=== PATIENT | male | born 1995 | race Caucasian/White ===

== ENCOUNTER 2019-02-26 02:24 | Emergency (ER) | payer OTHER ==
[2019-02-26 02:31] VITALS: BP 151/75; PULSE 66; RESP 18; TEMP 98.1
[2019-02-26] MEDS ORDERED: ACET/COD 300 MG/30 MG STARTER PACK 6 TAB BTL PO STA (03:13)
[2019-02-26] MEDS ORDERED: PENICILLIN VK 500MG STARTER 4 TAB BTL PO STA (03:13)
[2019-02-26] MEDS ORDERED: KETOROLAC 30 MG/ML 1 ML VIAL IM STA (03:14)
--- NOTE | 2019-02-26 03:19 | ED ---
General Adult HPI - General Chief complaint: Dental/Oral Stated complaint: Mouth pain Time Seen by Provider: 02/26/19 02:51 Source: patient Mode of arrival: ambulatory Limitations: physical limitation - History of Present Illness Initial comments: 23-year-old male patient presents to the emergency department today for evaluation of left upper dental pain. Patient states he has had this intermittently over the last few months but has worsened over the last couple of days. Patient states he has tried Tylenol Motrin without relief. Denies any fever or chills. States he has been nauseous but has had no vomiting. Denies any trismus or difficulty swallowing. Patient states that he does have a wisdom tooth that has broken. Denies recent appointment with dentistry. States he does not have dental insurance. He does have medical insurance. Patient denies any recent rash, shortness breath, chest pain, abdominal pain, diarrhea, constipation, back pain, numbness, tingling, dizziness, weakness, hematuria, dysuria, urinary urgency, urinary frequency, headache, visual changes, or any other complaints. - Related Data Previous Rx's Medication Instructions Recorded Naproxen [EC-Naprosyn] 500 mg PO BID PRN #30 tablet. 02/26/19 Penicillin V Potassium [Pen Vee K] 500 mg PO Q6H #40 tablet 02/26/19 Allergies Allergy/AdvReac Type Severity Reaction Status Date / Time erythromycin base Allergy Rash/Hives Verified 02/26/19 02:31 Review of Systems ROS Statement: Those systems with pertinent positive or pertinent negative responses have been documented in the HPI. ROS Other: All systems not noted in ROS Statement are negative. Past Medical History Past Medical History: No Reported History History of Any Multi-Drug Resistant Organisms: None Reported Past Surgical History: No Surgical Hx Reported Past Psychological History: No Psychological Hx Reported Smoking Status: Current every day smoker Past Alcohol Use History: None Reported Past Drug Use History: None Reported General Exam Limitations: physical limitation General appearance: alert, in no apparent distress, other (This is a well- developed, well-nourished adult male patient in no acute distress. Vital signs upon presentation are temperature 98.1F, pulse 66, respirations 18, blood pressure 151/75, pulse ox 99% on room air.) Eye exam: Present: normal appearance, PERRL, EOMI. Absent: scleral icterus, conjunctival injection, periorbital swelling ENT exam: Present: normal oropharynx, mucous membranes moist, other (There is broken wisdom tooth to the left upper region. There is surrounding gingival erythema and hyperplasia. No evidence of drainable abscess.) Neck exam: Present: normal inspection. Absent: tenderness, meningismus, lymphadenopathy Respiratory exam: Present: normal lung sounds bilaterally. Absent: respiratory distress, wheezes, rales, rhonchi, stridor Cardiovascular Exam: Present: regular rate, normal rhythm, normal heart sounds. Absent: systolic murmur, diastolic murmur, rubs, gallop, clicks GI/Abdominal exam: Present: soft, normal bowel sounds. Absent: distended, tenderness, guarding, rebound, rigid Neurological exam: Present: alert, oriented X3, CN II-XII intact Psychiatric exam: Present: normal affect, normal mood Skin exam: Present: warm, dry, intact, normal color. Absent: rash Course Vital Signs 02/26/19 02:27 Temperature 98.1 F Pulse Rate 66 Respiratory 18 Rate Blood Pressure 151/75 O2 Sat by Pulse 99 Oximetry Medical Decision Making - Medical Decision Making 23-year-old male patient presents to the emergency department today for evaluation of left upper dental pain. Physical examination did reveal a broken wisdom tooth. There is surrounding gingival erythema and hyperplasia. No evidence of drainable abscess. We will start penicillin. He'll be given an injection of Toradol and oral Tylenol with Codeine here in the department. Be discharged pop with dentistry for recheck as soon as possible. Return parameters were discussed in detail. He verbalizes understanding and agrees with this plan. Disposition Clinical Impression: Pain, dental Disposition: HOME SELF-CARE Condition: Good Instructions (If sedation given, give patient instructions): Dental Abscess (ED), Toothache (ED) Additional Instructions: Take medications as directed. Follow up with dentistry as soon as possible. Follow-up with your primary care physician for recheck in 1-2 days. Return to the emergency department for any new, worsening, or concerning symptoms. Please follow up with the [facility]. [facility] [place] [address]. Phone number for new patients or [phone] for existing patients. [facility]. Must pay for x-rays then services are free. Call for an appointment. Your prescription was sent to the [facility] on [address] Prescriptions: Naproxen [EC-Naprosyn] 500 mg PO BID PRN #30 tablet.dr VALENCIA Reason: Pain Penicillin V Potassium [Pen Vee K] 500 mg PO Q6H #40 tablet Is patient prescribed a controlled substance at d/c from ED?: No Referrals: None,Stated [Primary Care Provider] - 1-2 days Time of Disposition: 03:17
== END 2019-02-26 03:31 | disposition home or self-care (01) ==
LOC: EC 02:24
DX: S02.5XXA Fracture of tooth (traumatic), initial encounter for closed fracture (principal); R11.0 Nausea; F17.200 Nicotine dependence, unspecified, uncomplicated; Z88.1 Allergy status to other antibiotic agents
CPT/HCPCS: 99283; 96372; J1885

== ENCOUNTER 2019-05-02 16:41 | Emergency (ER) | payer BC, OTHER ==
[2019-05-02 17:08] VITALS: BP 132/82; PULSE 80; RESP 18; TEMP 98.4
[2019-05-02] MEDS ORDERED: KETOROLAC 30 MG/ML 1 ML VIAL IM STA (17:29)
[2019-05-02] MEDS ORDERED: ACET/COD 300 MG/30 MG STARTER PACK 6 TAB BTL PO STA (17:30)
[2019-05-02] MEDS ORDERED: PENICILLIN VK 500MG STARTER 4 TAB BTL PO STA (17:30)
--- NOTE | 2019-05-02 17:35 | ED ---
General Adult HPI - General Chief complaint: Dental/Oral Stated complaint: Dental pain Time Seen by Provider: 05/02/19 17:12 Source: patient, RN notes reviewed Mode of arrival: ambulatory Limitations: no limitations - History of Present Illness Initial comments: 23-year-old male presents for dental pain. Patient has had dental pain for the past several weeks on and off. States it is worse today. States he tried to make an appointment with the dentist and is currently on a cancellation list. Patient states he has been taking Motrin and Tylenol without success. Denies fevers or chills. Denies sublingual edema. Denies neck stiffness or headache. Patient has no other complaints at this time including shortness of breath, chest pain, abdominal pain, nausea or vomiting, headache, or visual changes. - Related Data Previous Rx's Medication Instructions Recorded Naproxen [EC-Naprosyn] 500 mg PO BID PRN #30 tablet. 02/26/19 Penicillin V Potassium [Pen Vee K] 500 mg PO Q6H #40 tablet 02/26/19 Penicillin V Potassium [Pen Vee K] 500 mg PO Q6H 10 Days #40 tablet 05/02/19 Allergies Allergy/AdvReac Type Severity Reaction Status Date / Time erythromycin base Allergy Rash/Hives Verified 02/26/19 02:31 Review of Systems ROS Statement: Those systems with pertinent positive or pertinent negative responses have been documented in the HPI. ROS Other: All systems not noted in ROS Statement are negative. Past Medical History Past Medical History: No Reported History History of Any Multi-Drug Resistant Organisms: None Reported Past Surgical History: No Surgical Hx Reported Past Psychological History: No Psychological Hx Reported Smoking Status: Current every day smoker Past Alcohol Use History: None Reported Past Drug Use History: None Reported General Exam Limitations: no limitations General appearance: alert, in no apparent distress Head exam: Present: atraumatic, normocephalic, normal inspection Eye exam: Present: normal appearance, PERRL, EOMI. Absent: scleral icterus, conjunctival injection, periorbital swelling ENT exam: Present: normal exam, mucous membranes moist, TM's normal bilaterally, normal external ear exam, other (No significant facial or jaw edema.). Absent: normal oropharynx (Patient has poor dentition noted. Patient is tenderness to the left upper molar. There is no palpable or visible abscess along the gumline.) Neck exam: Present: normal inspection, full ROM. Absent: tenderness, meningismus, lymphadenopathy Respiratory exam: Present: normal lung sounds bilaterally. Absent: respiratory distress, wheezes, rales, rhonchi, stridor Cardiovascular Exam: Present: regular rate, normal rhythm, normal heart sounds. Absent: systolic murmur, diastolic murmur, rubs, gallop, clicks Neurological exam: Present: alert Course Vital Signs 05/02/19 17:06 Temperature 98.4 F Pulse Rate 80 Respiratory 18 Rate Blood Pressure 132/82 O2 Sat by Pulse 96 Oximetry Medical Decision Making - Medical Decision Making Patient presents for left upper molar pain. This is been ongoing for several weeks. Patient is already trying to follow-up with the dentist. No fevers or chills. No sublingual tenderness or edema. No significant facial edema. Patient will be started on penicillin. He will be given starter pack of Tylenol 3. He will follow up with primary care in 1-2 days and return to the emergency department if you have any worsening symptoms. Disposition Clinical Impression: Pain, dental Disposition: HOME SELF-CARE Condition: Good Instructions (If sedation given, give patient instructions): Toothache (ED) Additional Instructions: Please take penicillin as directed. Take Motrin and Tylenol for pain. If pain is severe take Tylenol 3. Do not take more than 4000 mg of Tylenol per day. Follow-up with primary care as well as your dentist as soon as possible. Return to the emergency department for having worsening symptoms. Prescriptions: Penicillin V Potassium [Pen Vee K] 500 mg PO Q6H 10 Days #40 tablet Is patient prescribed a controlled substance at d/c from ED?: No Referrals: Malena Noel MD [REFERRING] - 1-2 days Time of Disposition: 17:34
== END 2019-05-02 17:47 | disposition home or self-care (01) ==
LOC: EC 16:41
DX: K08.89 Other specified disorders of teeth and supporting structures (principal); F17.200 Nicotine dependence, unspecified, uncomplicated; Z88.1 Allergy status to other antibiotic agents
CPT/HCPCS: 99282; 96372; J1885

== ENCOUNTER 2019-05-04 00:17 | Emergency (ER) | payer BC, OTHER ==
[2019-05-04 00:30] VITALS: BP 147/88; PULSE 77; RESP 18; TEMP 97.7
[2019-05-04] MEDS ORDERED: BUPIVACAINE (PF) 0.5% 30 ML VIAL SQ STA (00:37)
[2019-05-04] MEDS ORDERED: ACET/COD 300 MG/30 MG STARTER PACK 6 TAB BTL PO STA (01:02)
--- NOTE | 2019-05-04 01:03 | ED ---
General Adult HPI - General Chief complaint: Dental/Oral Stated complaint: Recheck, Dental Pain Time Seen by Provider: 05/04/19 00:33 Source: patient, family Mode of arrival: ambulatory Limitations: no limitations - History of Present Illness Initial comments: 23-year-old male patient presents to the emergency department today for evaluation of left upper dental pain. Patient states his been going on for the last several weeks intermittent October but over the last 4-5 days has been constant. Patient states he was seen and evaluated here on 05/02 and given a prescription for antibiotics and some Tylenol with Codeine. States that he has been taking medications without relief of symptoms. Patient states he is unable to eat, drink, or sleep. States he has been taking ibuprofen as well. Denies any trismus or difficulty swallowing. Denies any nausea or vomiting. Patient does have a dentist appointment on Saturday. Patient denies any recent rash, fever, chills, shortness breath, chest pain, abdominal pain, diarrhea, constipation, back pain, numbness, tingling, dizziness, weakness, hematuria, dysuria, urinary urgency, urinary frequency, headache, visual changes, or any other complaints. - Related Data Previous Rx's Medication Instructions Recorded Naproxen [EC-Naprosyn] 500 mg PO BID PRN #30 tablet. 02/26/19 Penicillin V Potassium [Pen Vee K] 500 mg PO Q6H #40 tablet 02/26/19 Penicillin V Potassium [Pen Vee K] 500 mg PO Q6H 10 Days #40 tablet 05/02/19 Allergies Allergy/AdvReac Type Severity Reaction Status Date / Time azithromycin Allergy Rash/Hives Verified 05/04/19 00:30 Review of Systems ROS Statement: Those systems with pertinent positive or pertinent negative responses have been documented in the HPI. ROS Other: All systems not noted in ROS Statement are negative. Past Medical History Past Medical History: No Reported History History of Any Multi-Drug Resistant Organisms: None Reported Past Surgical History: No Surgical Hx Reported Past Psychological History: No Psychological Hx Reported Smoking Status: Current every day smoker Past Alcohol Use History: None Reported Past Drug Use History: None Reported General Exam Limitations: no limitations General appearance: alert, in no apparent distress, other (This is a well- developed, well-nourished adult male patient in no acute distress. Vital signs upon presentation are temperature 97.7F, pulse 77, respirations 18, blood pressure 147/88, pulse ox 97% on room air) Eye exam: Present: normal appearance, PERRL, EOMI. Absent: scleral icterus, conjunctival injection, periorbital swelling ENT exam: Present: normal oropharynx, mucous membranes moist, other (Patient has very poor dentition with multiple dental caries and decay to the left upper dentition. There is no surrounding erythema or swelling. Patient has no sublingual edema or tenderness.) Respiratory exam: Present: normal lung sounds bilaterally. Absent: respiratory distress, wheezes, rales, rhonchi, stridor Cardiovascular Exam: Present: regular rate, normal rhythm, normal heart sounds. Absent: systolic murmur, diastolic murmur, rubs, gallop, clicks Neurological exam: Present: alert, oriented X3, CN II-XII intact Psychiatric exam: Present: normal affect, normal mood Skin exam: Present: warm, dry, intact, normal color. Absent: rash Course Vital Signs 05/04/19 00:27 Temperature 97.7 F Pulse Rate 77 Respiratory 18 Rate Blood Pressure 147/88 O2 Sat by Pulse 97 Oximetry Procedures - Nerve Block Consent Obtained: verbal consent Local Anesthetic Used: Marcaine 0.5% Amount of anesthesia used: 3 Side: left Intraoral Nerve Block: superior alveolar Procedure Successful: Yes Complications: none Patient Tolerated Procedure: well Medical Decision Making - Medical Decision Making 23-year-old male patient presents to the emergency department today for evaluation of left upper dental pain. Physical examination did reveal dental decay and caries. No evidence of drainable abscess. Patient is been taking Tylenol with codeine and ibuprofen without relief. Did perform a posterior superior alveolar nerve block. Patient did have relief of pain with this. He'll be given additional starter pack for Tylenol codeine. He is instructed to continue ibuprofen and antibiotics. He is instructed to follow up with dentistry on Saturday as he has planned. Return parameters were discussed in detail. He verbalizes understanding and agrees with this plan. Disposition Clinical Impression: Pain, dental Disposition: HOME SELF-CARE Condition: Good Instructions (If sedation given, give patient instructions): Toothache (ED) Additional Instructions: Continue antibiotics. Take medications as directed for pain relief. Follow up with dentistry on Saturday as you have planned. Return to the emergency department immediately for any new, worsening, or concerning symptoms. Is patient prescribed a controlled substance at d/c from ED?: No Referrals: None,Stated [Primary Care Provider] - 1-2 days Time of Disposition: 01:03
== END 2019-05-04 01:11 | disposition home or self-care (01) ==
LOC: EC 00:17
DX: K02.9 Dental caries, unspecified (principal); F17.200 Nicotine dependence, unspecified, uncomplicated; Z88.1 Allergy status to other antibiotic agents
CPT/HCPCS: 64400; 99282

== ENCOUNTER 2023-11-30 12:29 | Emergency (ER) | payer OTHER ==
[2023-11-30 12:49] VITALS: BP 147/89; PULSE 52; RESP 18; TEMP 97.9
--- NOTE | 2023-11-30 12:58 | ED ---
ENT HPI - General Chief complaint: Dental/Oral Stated complaint: Dental Issue Time Seen by Provider: 11/30/23 12:50 Source: patient Mode of arrival: ambulatory Limitations: no limitations - History of Present Illness Initial comments: This is a 28-year-old male who presents to the emergency department chief complaint of dental pain. Patient states that he has an appoint with his dentist on Saturday, 12/01 further evaluation. Patient states that he has taken Tylenol and Motrin at home over the last week which is not alleviating his symptoms. He denies fevers, nausea, vomiting, fatigue. Denies chest pain, chest pressure, palpitations, dizziness, dyspnea. Denies recent antibiotic use. No other acute complaints at this time. - Related Data Previous Rx's Medication Instructions Recorded Naproxen [EC-Naprosyn] 500 mg PO BID PRN #30 tablet. 02/26/19 Penicillin V Potassium [Pen Vee K] 500 mg PO Q6H #40 tablet 02/26/19 Penicillin V Potassium [Pen Vee K] 500 mg PO Q6H 10 Days #40 tablet 05/02/19 Amoxicillin 875 mg PO Q12HR #20 tablet 11/30/23 Ketorolac [Toradol] 10 mg PO Q8HR #15 tab 11/30/23 Allergies Allergy/AdvReac Type Severity Reaction Status Date / Time azithromycin Allergy Rash/Hives Verified 05/04/19 00:30 Review of Systems ROS Statement: Those systems with pertinent positive or pertinent negative responses have been documented in the HPI. ROS Other: All systems not noted in ROS Statement are negative. Past Medical History Past Medical History: No Reported History History of Any Multi-Drug Resistant Organisms: None Reported Past Surgical History: No Surgical Hx Reported Past Psychological History: No Psychological Hx Reported Smoking Status: Current every day smoker Past Alcohol Use History: Rare Past Drug Use History: None Reported General Exam Limitations: no limitations General appearance: alert, in no apparent distress Head exam: Present: atraumatic, normocephalic, normal inspection Eye exam: Present: normal appearance, PERRL, EOMI. Absent: scleral icterus, conjunctival injection, periorbital swelling ENT exam: Present: normal exam, mucous membranes moist Expanded Mouth exam: Present: normal external inspection Teeth exam: Present: dental caries, dental tenderness # Throat exam: normal inspection. negative: tonsillar erythema, tonsillomegaly Neck exam: Present: normal inspection. Absent: tenderness, meningismus, lymphadenopathy Respiratory exam: Present: normal lung sounds bilaterally. Absent: respiratory distress, wheezes, rales, rhonchi, stridor Cardiovascular Exam: Present: regular rate, normal rhythm, normal heart sounds. Absent: systolic murmur, diastolic murmur, rubs, gallop, clicks Back exam: Present: normal inspection Neurological exam: Present: alert, oriented X3, CN II-XII intact Course Vital Signs 11/30/23 12:47 Temperature 97.9 F Pulse Rate 52 L Respiratory 18 Rate Blood Pressure 147/89 O2 Sat by Pulse 98 Oximetry Medical Decision Making - Medical Decision Making Was pt. sent in by a medical professional or institution (, [facility], [facility], urgent care, hospital, or fci...) When possible be specific @ -No Did you speak to anyone other than the patient for history (EMS, parent, family, police, friend...)? What history was obtained from this source @ -No Did you review nursing and triage notes (agree or disagree)? Why? @ -I reviewed and agree with nursing and triage notes Were old charts reviewed (outside hosp., previous admission, EMS record, old EKG, old radiological studies, urgent care reports/EKG's, fci records)? Report findings @ -No old charts were reviewed Differential Diagnosis (chest pain, altered mental status, abdominal pain women, abdominal pain men, vaginal bleeding, weakness, fever, dyspnea, syncope, headache, dizziness, GI bleed, back pain, seizure, CVA, palpatations, mental health, musculoskeletal)? @ -dental pain, dental abscess, pulpitis, gingivitis, dental caries, this list is not all inclusive. EKG interpreted by me (3pts min.). @ -none X-rays interpreted by me (1pt min.). @ -None done CT interpreted by me (1pt min.). @ -None done U/S interpreted by me (1pt. min.). @ -None done What testing was considered but not performed or refused? (CT, X-rays, U/S, labs)? Why? @ -None What meds were considered but not given or refused? Why? @ -None Did you discuss the management of the patient with other professionals (professionals i.e. , PA, [facility], lab, RT, psych nurse, social human services assistants, writer producer, teacher, contact officer, pillowcase maker)? Give summary @ -No Was smoking cessation discussed for >3mins.? @ -No Was critical care preformed (if so, how long)? @ -No Were there social determinants of health that impacted care today? How? (Homelessness, low income, unemployed, alcoholism, drug addiction, transportation, low edu. Level, literacy, decrease access to med. care, snf, rehab)? @ -No Was there de-escalation of care discussed even if they declined (Discuss DNR or withdrawal of care, Hospice)? DNR status @ -No What co-morbidities impacted this encounter? (DM, HTN, Smoking, COPD, CAD, Cancer, CVA, ARF, Chemo, Hep., AIDS, mental health diagnosis, sleep apnea, morbid obesity)? @ -None Was patient admitted / discharged? Hospital course, mention meds given and route, prescriptions, significant lab abnormalities, going to OR and other pertinent info. @ -Discharged. 28-year-old male with left-sided dental pain. On examination patient has noted to have poor overall dentition. There is no signs of dental abscess noted. Patient has point dental tenderness to the maxillary left and mandibular line. Patient's vital stable. At this time he will be discharged home with oral antibiotics and Toradol to take as needed for pain relief. Patient does have an appointment scheduled with his dentist on Saturday. Patient's evidence and at bedside and strict return parameters counseled the patient rates verbalized understanding. Case discussed with my attending Dr. Crook Undiagnosed new problem with uncertain prognosis? @ -No Drug Therapy requiring intensive monitoring for toxicity (Heparin, Nitro, Insulin, Cardizem)? @ -No Were any procedures done? @ -No Diagnosis/symptom? @ -dental pain, dental caries Acute, or Chronic, or Acute on Chronic? @ -acute Uncomplicated (without systemic symptoms) or Complicated (systemic symptoms)? @ -Uncomplicated Side effects of treatment? @ -No Exacerbation, Progression, or Severe Exacerbation? @ -No Poses a threat to life or bodily function? How? (Chest pain, [place], [place], pneumonia, PE, COPD, DKA, ARF, appy, cholecystitis, CVA, Diverticulitis, Homicidal, Suicidal, threat to staff... and all critical care pts) @ -unlikely Disposition Clinical Impression: Pain due to dental caries, Pain, dental Disposition: HOME SELF-CARE Condition: Good Instructions (If sedation given, give patient instructions): Toothache (ED) Additional Instructions: Return to the emergency department if your symptoms worsen or not improved. Complete full course of antibiotics as prescribed. Follow-up as scheduled with dentist on Saturday. Prescriptions: Amoxicillin 875 mg PO Q12HR #20 tablet Ketorolac [Toradol] 10 mg PO Q8HR #15 tab Is patient prescribed a controlled substance at d/c from ED?: No Referrals: None,Stated [Primary Care Provider] - 1-2 days Time of Disposition: 12:57
[2023-11-30] MEDS: traMADol 50 MG STARTER PACK 3 TAB BTL PO STA (13:35)
== END 2023-11-30 13:35 | disposition home or self-care (01) ==
LOC: EC 12:29
DX: K02.9 Dental caries, unspecified (principal); F17.200 Nicotine dependence, unspecified, uncomplicated; Z88.1 Allergy status to other antibiotic agents
CPT/HCPCS: 99282

== ENCOUNTER 2024-09-11 23:43 | Emergency (ER) | payer OTHER ==
[2024-09-12] MEDS: DEXAMETHASONE SOD PHOSPHATE 10 MG/ML 1 ML VIAL IM STA (00:55)
[2024-09-12] MEDS: KETOROLAC 15 MG/ML 1 ML VIAL IM STA (00:56)
[2024-09-12] MEDS: ORPHENADRINE 30 MG/ML 2 ML VIAL IM STA (00:56)
--- NOTE | 2024-09-12 01:47 | XR ---
EXAM: XR Left Hip With Pelvis When Performed, 2 or 3 Views CLINICAL HISTORY: ITS.REASON XR Reason: pain TECHNIQUE: Two or three views of the left hip with pelvis when performed. COMPARISON: No relevant prior studies available. FINDINGS: Bones/joints: No acute fracture. No dislocation. Soft tissues: Unremarkable. IMPRESSION: No acute osseous findings.
--- NOTE | 2024-09-12 02:04 | ED ---
Lower Extremity Injury HPI - General Chief Complaint: Extremity Injury, Lower Stated Complaint: Hip Pain Time Seen by Provider: 09/12/24 00:29 Source: patient Mode of arrival: ambulatory Limitations: no limitations - History of Present Illness Initial Comments: 28-year-old male presenting with chief complaint of left hip pain. States that this has been an ongoing issue for the past 2 months. He denies any injury or trauma. About a week ago he started having an increase in the intensity and frequency of the pain. Tonight the pain was too much and he could not handle it at home with Motrin and Tylenol. He does have some radiation from his lower back as well. No loss of bowel or bladder control or saddle paresthesia. At times he does get some numbness and tingling. No fever vomiting or abdominal pain. - Related Data Previous Rx's Medication Instructions Recorded Naproxen [EC-Naprosyn] 500 mg PO BID PRN #30 tablet. 02/26/19 Penicillin V Potassium [Pen Vee K] 500 mg PO Q6H #40 tablet 02/26/19 Penicillin V Potassium [Pen Vee K] 500 mg PO Q6H 10 Days #40 tablet 05/02/19 Amoxicillin 875 mg PO Q12HR #20 tablet 11/30/23 Ketorolac [Toradol] 10 mg PO Q8HR #15 tab 11/30/23 Amoxic-Pot Clav 875-125Mg 1 tab PO BID 10 Days #20 tab 07/18/24 [Augmentin 875-125] Cyclobenzaprine [Flexeril] 10 mg PO TID PRN #15 tab 09/12/24 Allergies Allergy/AdvReac Type Severity Reaction Status Date / Time azithromycin Allergy Rash/Hives Verified 09/11/24 23:59 Review of Systems ROS Statement: Those systems with pertinent positive or pertinent negative responses have been documented in the HPI. ROS Other: All systems not noted in ROS Statement are negative. Past Medical History Past Medical History: No Reported History History of Any Multi-Drug Resistant Organisms: None Reported Past Surgical History: No Surgical Hx Reported Past Psychological History: No Psychological Hx Reported Smoking Status: Current every day smoker Past Alcohol Use History: Rare Past Drug Use History: Marijuana General Exam Limitations: no limitations General appearance: alert, in no apparent distress Head exam: Present: atraumatic, normocephalic, normal inspection Eye exam: Present: normal appearance, EOMI Neck exam: Present: normal inspection. Absent: meningismus Respiratory exam: Absent: respiratory distress Cardiovascular Exam: Present: regular rate Extremities exam: Present: normal inspection, full ROM. Absent: tenderness Back exam: Present: normal inspection. Absent: tenderness Neurological exam: Present: alert, oriented X3 Psychiatric exam: Present: normal affect, normal mood Skin exam: Present: warm, dry, normal color Course Vital Signs 09/11/24 23:56 Temperature 98 F Pulse Rate 106 H Respiratory 18 Rate Blood Pressure 124/87 O2 Sat by Pulse 100 Oximetry Medical Decision Making - Medical Decision Making Was pt. sent in by a medical professional or institution (, PA, SCHOOL OFFICE ASSISTANT, urgent care, hospital, or retirement...) When possible be specific @ -No Did you speak to anyone other than the patient for history (EMS, parent, family, police, friend...)? What history was obtained from this source @ -No Did you review nursing and triage notes (agree or disagree)? Why? @ -I reviewed and agree with nursing and triage notes Were old charts reviewed (outside hosp., previous admission, EMS record, old EKG, old radiological studies, urgent care reports/EKG's, retirement records)? Report findings @ -No old charts were reviewed Differential Diagnosis (chest pain, altered mental status, abdominal pain women, abdominal pain men, vaginal bleeding, weakness, fever, dyspnea, syncope, headache, dizziness, GI bleed, back pain, seizure, CVA, palpatations, mental health, musculoskeletal)? @ -Differential Musculoskeletal Muscular strain, contusion, ligament sprain, fracture, arthritis, septic arthritis, bursitis, cellulitis, muscle spasm, nerve compression, DVT, arterial occlusion, herpes zoster, electrolyte abnormality, tumor.... This is not meant to be in all inclusive list EKG interpreted by me (3pts min.). @ -As above X-rays interpreted by me (1pt min.). @ -X-ray shows no acute osseous abnormality CT interpreted by me (1pt min.). @ -None done U/S interpreted by me (1pt. min.). @ -None done What testing was considered but not performed or refused? (CT, X-rays, U/S, labs)? Why? @ -None What meds were considered but not given or refused? Why? @ -None Did you discuss the management of the patient with other professionals (professionals i.e. DrMyriam, PA, SCHOOL OFFICE ASSISTANT, lab, RT, psych nurse, transition social worker, software designer, teacher, bank operations officer, medical case manager)? Give summary @ -No Was smoking cessation discussed for >3mins.? @ -No Was critical care preformed (if so, how long)? @ -No Were there social determinants of health that impacted care today? How? (Homelessness, low income, unemployed, alcoholism, drug addiction, transportation, low edu. Level, literacy, decrease access to med. care, half-way, rehab)? @ -No Was there de-escalation of care discussed even if they declined (Discuss DNR or withdrawal of care, Hospice)? DNR status @ -No What co-morbidities impacted this encounter? (DM, HTN, Smoking, COPD, CAD, Cancer, CVA, ARF, Chemo, Hep., AIDS, mental health diagnosis, sleep apnea, morbid obesity)? @ -None Was patient admitted / discharged? Hospital course, mention meds given and route, prescriptions, significant lab abnormalities, going to OR and other pertinent info. @ -28-year-old male presenting with chief complaint of left hip pain ongoing for 2 months worse the past week. No injury or trauma. No red flag symptoms. Patient treated with pain medication here in the ER. X-rays negative for acute process. On reassessment patient reports improvement in his symptoms. He is educated on today's findings and supportive management at home. Instructed to follow-up with orthopedics. Follow-up with PCP. Report back to ER with any new or worsening symptoms. Discussed return parameters and answered all questions. Patient conveyed verbal understanding and agreed to the plan. I discussed this case in detail with my attending Dr. Mallory Undiagnosed new problem with uncertain prognosis? @ -No Drug Therapy requiring intensive monitoring for toxicity (Heparin, Nitro, Insulin, Cardizem)? @ -No Were any procedures done? @ -No Diagnosis/symptom? @ -Hip pain Acute, or Chronic, or Acute on Chronic? @ -Acute Uncomplicated (without systemic symptoms) or Complicated (systemic symptoms)? @ -Uncomplicated Side effects of treatment? @ -No Exacerbation, Progression, or Severe Exacerbation? @ -No Poses a threat to life or bodily function? How? (Chest pain, [place], [place], pneumonia, PE, COPD, DKA, ARF, appy, cholecystitis, CVA, Diverticulitis, Homicidal, Suicidal, threat to staff... and all critical care pts) @ -Low likelihood Disposition Clinical Impression: Hip pain Disposition: HOME SELF-CARE Condition: Good Instructions (If sedation given, give patient instructions): Hip Pain (ED) Additional Instructions: Follow-up with PCP and orthopedics. Report back to ER with any new or worsening symptoms. Take Motrin Tylenol as needed for pain control. Do not take cyclobenzaprine before driving or operating heavy machinery as it may cause drowsiness Prescriptions: Cyclobenzaprine [Flexeril] 10 mg PO TID PRN #15 tab PRN Reason: Spasms Is patient prescribed a controlled substance at d/c from ED?: No Referrals: None,Stated [Primary Care Provider] - 1-2 days Navid Quigley DO [Doctor of Osteopathic Medicine] - 1-2 days Forms: Area PCPs Time of Disposition: 02:03
[2024-09-12 02:12] VITALS: BP 122/78; PULSE 77; RESP 16; TEMP 98.5
== END 2024-09-12 02:10 | disposition home or self-care (01) ==
LOC: EC 23:43
DX: M25.551 Pain in right hip (principal); F17.200 Nicotine dependence, unspecified, uncomplicated; Z88.1 Allergy status to other antibiotic agents
CPT/HCPCS: 99283; 96372; 73502; J1100; J2360; J1885

== ENCOUNTER 2024-09-26 11:27 | Emergency (ER) | payer OTHER ==
[2024-09-26 11:52] VITALS: BP 142/92; PULSE 92; RESP 18; TEMP 97.8
--- NOTE | 2024-09-26 12:16 | ED ---
General Adult HPI - General Chief complaint: Extremity Problem,Nontraumatic Stated complaint: L Leg Pain and Numbness Time Seen by Provider: 09/26/24 11:57 Source: patient, RN notes reviewed Mode of arrival: ambulatory Limitations: no limitations - History of Present Illness Initial comments: 29-year-old male with no reported medical history presents emergency department for complaint of left hip and leg pain that has been ongoing over the past month. Patient states that he was evaluated in the hospital 2 weeks ago for similar symptoms and was instructed to follow-up outpatient, however, states he has been unable to due to lack of transportation. States the pain is located in the left hip that will radiate into his left buttock and down his left leg described as a tingling sensation. Patient denies falls or injuries that may have enticed pain. He denies loss of bladder bowel continence or saddle anesthesias. States he has been taking Tylenol Motrin as needed for pain with minimal relief in symptoms. No other acute complaints at this time. - Related Data Previous Rx's Medication Instructions Recorded Naproxen [EC-Naprosyn] 500 mg PO BID PRN #30 tablet. 02/26/19 Penicillin V Potassium [Pen Vee K] 500 mg PO Q6H #40 tablet 02/26/19 Penicillin V Potassium [Pen Vee K] 500 mg PO Q6H 10 Days #40 tablet 05/02/19 Amoxicillin 875 mg PO Q12HR #20 tablet 11/30/23 Ketorolac [Toradol] 10 mg PO Q8HR #15 tab 11/30/23 Amoxic-Pot Clav 875-125Mg 1 tab PO BID 10 Days #20 tab 07/18/24 [Augmentin 875-125] Cyclobenzaprine [Flexeril] 10 mg PO TID PRN #15 tab 09/12/24 Cyclobenzaprine [Flexeril] 10 mg PO TID PRN #15 tab 09/26/24 Ibuprofen [Motrin] 800 mg PO Q6HR #30 tab 09/26/24 Allergies Allergy/AdvReac Type Severity Reaction Status Date / Time azithromycin Allergy Rash/Hives Verified 09/26/24 11:52 Review of Systems ROS Statement: Those systems with pertinent positive or pertinent negative responses have been documented in the HPI. ROS Other: All systems not noted in ROS Statement are negative. Past Medical History Past Medical History: No Reported History History of Any Multi-Drug Resistant Organisms: None Reported Past Surgical History: No Surgical Hx Reported Past Psychological History: No Psychological Hx Reported Smoking Status: Current every day smoker Past Alcohol Use History: Rare Past Drug Use History: Marijuana General Exam Limitations: no limitations General appearance: alert, in no apparent distress Neck exam: Present: normal inspection. Absent: tenderness, meningismus, lymphadenopathy Respiratory exam: Present: normal lung sounds bilaterally. Absent: respiratory distress, wheezes, rales, rhonchi, stridor Cardiovascular Exam: Present: regular rate, normal rhythm, normal heart sounds. Absent: systolic murmur, diastolic murmur, rubs, gallop, clicks GI/Abdominal exam: Present: soft, normal bowel sounds. Absent: distended, tenderness, guarding, rebound, rigid Extremities exam: Present: normal inspection, tenderness (left hip/buttock with radiation down the posterior left leg) Back exam: Present: normal inspection. Absent: CVA tenderness (R), CVA tenderness (L) Course Vital Signs 09/26/24 11:46 Temperature 97.8 F Pulse Rate 92 Respiratory 18 Rate Blood Pressure 142/92 O2 Sat by Pulse 99 Oximetry Medical Decision Making - Medical Decision Making Was pt. sent in by a medical professional or institution (, PA, ASSOCIATE PROFESSOR COMPUTER SCIENCE, urgent care, hospital, or half-way...) When possible be specific @ -No Did you speak to anyone other than the patient for history (EMS, parent, family, police, friend...)? What history was obtained from this source @ -No Did you review nursing and triage notes (agree or disagree)? Why? @ -I reviewed and agree with nursing and triage notes Were old charts reviewed (outside hosp., previous admission, EMS record, old EKG, old radiological studies, urgent care reports/EKG's, half-way records)? Report findings @ -Reviewed patient's previous emergency room visit and x-ray that were completed with patient was discharged stable condition. X-ray was unremarkable. Differential Diagnosis (chest pain, altered mental status, abdominal pain women, abdominal pain men, vaginal bleeding, weakness, fever, dyspnea, syncope, headache, dizziness, GI bleed, back pain, seizure, CVA, palpatations, mental health, musculoskeletal)? @ -Differential Back Pain: Strain, zoster, cauda equina syndrome, epidural abscess, vertebral osteomyelitis, discitis, fracture, subluxation, disc herniation, DJD, spinal stenosis, dissection, AAA, pancreatitis, peptic ulcer disease, pyelonephritis, kidney stone, this is not meant to be an all-inclusive list. EKG interpreted by me (3pts min.). @ -None X-rays interpreted by me (1pt min.). @ -None done CT interpreted by me (1pt min.). @ -None done U/S interpreted by me (1pt. min.). @ -None done What testing was considered but not performed or refused? (CT, X-rays, U/S, labs)? Why? @ -None What meds were considered but not given or refused? Why? @ -None Did you discuss the management of the patient with other professionals (professionals i.e. , PA, ASSOCIATE PROFESSOR COMPUTER SCIENCE, lab, RT, psych nurse, aids social worker, marble machine operator, teacher, chief learning officer, disease case manager rn)? Give summary @ -No Was smoking cessation discussed for >3mins.? @ -No Was critical care preformed (if so, how long)? @ -No Were there social determinants of health that impacted care today? How? (Homelessness, low income, unemployed, alcoholism, drug addiction, transportation, low edu. Level, literacy, decrease access to med. care, assisted, rehab)? @ -No Was there de-escalation of care discussed even if they declined (Discuss DNR or withdrawal of care, Hospice)? DNR status @ -No What co-morbidities impacted this encounter? (DM, HTN, Smoking, COPD, CAD, Cancer, CVA, ARF, Chemo, Hep., AIDS, mental health diagnosis, sleep apnea, morbid obesity)? @ -None Was patient admitted / discharged? Hospital course, mention meds given and route, prescriptions, significant lab abnormalities, going to OR and other pertinent info. @ -Discharge. 29 old male presenting with left hip and leg pain. Pain aligns with sciatica. No red flag findings. Patient provided with medication here instructed follow-up outpatient. Provided with prescription for Flexeril to take as needed for muscle spasms. Case discussed with Dr. Gooden Undiagnosed new problem with uncertain prognosis? @ -No Drug Therapy requiring intensive monitoring for toxicity (Heparin, Nitro, Insulin, Cardizem)? @ -No Were any procedures done? @ -No Diagnosis/symptom? @ -Sciatica Acute, or Chronic, or Acute on Chronic? @ -Acute Uncomplicated (without systemic symptoms) or Complicated (systemic symptoms)? @ -uncomplicated Side effects of treatment? @ -No Exacerbation, Progression, or Severe Exacerbation? @ -No Poses a threat to life or bodily function? How? (Chest pain, [place], [place], pneumonia, PE, COPD, DKA, ARF, appy, cholecystitis, CVA, Diverticulitis, Homicidal, Suicidal, threat to staff... and all critical care pts) @ -No Disposition Clinical Impression: Sciatica Disposition: HOME SELF-CARE Condition: Good Instructions (If sedation given, give patient instructions): Sciatica (ED) Additional Instructions: Please return to the Emergency Department if symptoms worsen or any other concerns. Prescriptions: Cyclobenzaprine [Flexeril] 10 mg PO TID PRN #15 tab PRN Reason: Muscle Spasm Ibuprofen [Motrin] 800 mg PO Q6HR #30 tab Is patient prescribed a controlled substance at d/c from ED?: No Referrals: None,Stated [Primary Care Provider] - 1-2 days Time of Disposition: 12:25
[2024-09-26] MEDS: KETOROLAC 15 MG/ML 1 ML VIAL IM STA (12:58)
[2024-09-26] MEDS: ORPHENADRINE 30 MG/ML 2 ML VIAL IM STA (13:00)
== END 2024-09-26 13:15 | disposition home or self-care (01) ==
LOC: EC 11:27
DX: M54.32 Sciatica, left side (principal); F17.200 Nicotine dependence, unspecified, uncomplicated; Z88.1 Allergy status to other antibiotic agents
CPT/HCPCS: 99284; 96372; J2360; J1885